=== PATIENT | male | born 1935 | race Caucasian/White ===

== ENCOUNTER 2017-08-01 05:21 | Emergency (ER) | payer MEDICARE ==
--- OUTSIDE RECORDS SUMMARY | 2017-08-01 05:24 | XMS | Clinical Summary ---
:1935 Author Organization [facility] Address [address] [place] [address] Phone Care Team Providers Name Role Phone , Primary Care Provider Unavailable Allergies Not on File Current Medications Prescription Sig. Disp. Refills Start Date End Date Status metoprolol (LOPRESSOR) 25 Take 25 mg by Active MG tablet mouth 2 (two) times daily. warfarin (COUMADIN) 7.5 MG Take 7.5 mg by Active tablet mouth daily. Active Problems Not on file Social History Tobacco Use Types Packs/Day Years Used Date Never Smoker Smokeless Tobacco: Never Used Alcohol Use Drinks/Week oz/Week Comments No Sex Assigned at Date Recorded Not on file Last Filed Vital Signs Vital Sign Reading Time Taken Blood Pressure 160/91 10/17/2013 2:01 PM HEAD NURSE Pulse 65 10/17/2013 2:01 PM HEAD NURSE Temperature 36.6 C (97.8 F) 10/17/2013 11:55 AM HEAD NURSE Respiratory Rate 20 10/17/2013 11:55 AM HEAD NURSE Oxygen Saturation 95% 10/17/2013 2:01 PM HEAD NURSE Inhaled Oxygen Concentration - - Weight 88.5 kg (195 lb) 10/17/2013 11:55 AM HEAD NURSE Height 182.9 cm (6') 10/17/2013 11:55 AM HEAD NURSE Body Mass Index 26.45 10/17/2013 11:55 AM HEAD NURSE Plan of Treatment Not on file Results Not on filefrom Last 3 Months
--- OUTSIDE RECORDS SUMMARY | 2017-08-01 05:24 | XMS | Clinical Summary ---
:1935 Author Organization [facility] Address [address] [place] [address] Phone Care Team Providers Name Role Phone , Primary Care Provider Unavailable Allergies Not on File Current Medications Not on file Active Problems Not on file Social History Tobacco Use Types Packs/Day Years Used Date Never Assessed Sex Assigned at Date Recorded Not on file Last Filed Vital Signs Not on file Plan of Treatment Not on file Results Not on filefrom Last 3 Months
[2017-08-01] MEDS ORDERED: methylPREDNISolone Sod Succ/PF 125 MG/2 ML VIAL ONE (05:46)
[2017-08-01] MEDS ORDERED: Water For Inject, Bacteriostat 30 ML ONE (05:46)
== END 2017-08-01 05:55 | disposition home or self-care (01) ==
LOC: ERS 05:21
DX: T63.441A Toxic effect of venom of bees, accidental (unintentional), initial encounter (principal); L53.0 Toxic erythema; I50.9 Heart failure, unspecified; I48.91 Unspecified atrial fibrillation
CPT/HCPCS: 96372; J2930

== ENCOUNTER 2019-01-05 08:20 | Outpatient (CLI) | payer MEDICARE ==
[2019-01-05] MEDS ORDERED: Iopamidol 300 61% 100 ML VIAL FS ONE (09:00)
--- NOTE | 2019-01-05 15:59 | CT ---
CT SOFT TISSUE NECK WITH CONTRAST: HISTORY: Left neck pain, under left jaw, for one week. FINDINGS: Contrast enhanced CT images of the soft tissue neck demonstrate the paranasal sinuses to be well aera aguilar. The orbits are grossly unremarkable. The right and left manager distribution spaces are unremarkable. No evidence of parotid lesions seen. Some mild calcification is seen in the right and left distal common carotid arteries. No definite evidence of pharyngeal mucosal abnormalities is seen. The right brachiocephalic artery and the right and left common carotid arteries are tortuous. No definite evidence of lymphadenopathy is seen. There is a single mildly enlarged left level III ly mph node, minimal diameter measuring 5 mm. No evidence of central necrosis seen. Extensive cervical lordosis and kyphosis are seen in the cervical and thoracic spine, respectively. IMPRESSION: No significant evidence of soft tissue neck abnormality seen. POS: [facility]
== END 2019-01-05 08:21 | disposition home or self-care (01) ==
LOC: SCSCT 08:20
PROVIDERS: ATTEND Family Medicine
DX: M54.2 Cervicalgia (principal)
CPT/HCPCS: 70491; 82565; Q9967

== ENCOUNTER 2019-04-22 13:18 | Emergency (ER) | payer MEDICARE | END 2019-04-22 14:29 | disposition home or self-care (01) | LOC: ERS 13:18 | DX: S81.812A Laceration without foreign body, left lower leg, initial encounter (principal); I50.9 Heart failure, unspecified; I48.91 Unspecified atrial fibrillation; W22.8XXA Striking against or struck by other objects, initial encounter | CPT/HCPCS: 99282 ==

== ENCOUNTER 2019-12-16 13:49 | Emergency (ER) | payer MEDICARE ==
[2019-12-16 14:58] LABS: #Eosinphils 0.1 thou/uL (0.0-0.7); #Lymphocytes 0.9 thou/uL (1.20-3.40); #Monocytes 0.9 thou/uL (0.11-0.59); #Neutrophils 8.6 thou/uL (1.40-6.50); %Basophils 0.3 % (0.0-1.0); %Eosinophils 0.8 % (0.0-10.0); %Lymphocytes 8.2 % (21.0-51.0); %Monocytes 8.5 % (0.0-10.0); %Neutrophils 82.3 % (42.0-75.0); Hemoglobin 13.8 g/dL (14.0-18.0); Mean Corpuscular HGB CONC 32.4 g/dL (32.0-36.0); Mean Corpuscular Hemoglobin 29.9 pg (27.0-31.0); Mean Corpuscular Volume 92.2 fL (78.0-98.0); Mean Platelet Volume 8.7 fL (7.4-10.4); Platelet Count 122 thou/uL (130-400); RBC Distribution Width 13.5 % (11.5-14.5); Red Blood Cell (RBC) Count 4.63 mill/uL (4.70-6.10); White Blood Cell (WBC) Count 10.4 thou/uL (4.8-10.8)
--- NOTE | 2019-12-16 14:59 | CT ---
ABDOMEN AND PELVIC CT SCAN WITHOUT IV CONTRAST: Date: 12/16/2019 HISTORY: Right flank pain. History of kidney stones. COMPARISON: 01/09/2015. FINDINGS: Lung bases appear clear. Stable right hemidiaphragm elevation. Evidence for cardiomegaly. Some pleura l calcification over the right hemidiaphragm region. The visualized liver, gallbladder, pancreas, and adrenal glands are unremarkable. Splenomegaly. Bilateral renal vascular calcifications. There is at least one right renal calculus. There is an obstructing 0.5 cm diameter calculus involving the upper ureter at approximately the L3 level with mild proximal right renal hydronephrosis. 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 There are some multilevel lumbar spine canal stenosis changes. No evidence for large or small bowel obstruction. Enlarged prostate gland. No mass, abscess, or abnormal fluid collection. No significant adenopathy. IMPRESSION: 1. Obstructing proximal right ureteral calculus. Nonobstructing right renal calculus. 2. Splenomegaly. 3. Other findings as above. POS: [facility]
[2019-12-16 15:27] LABS: ALT (SGPT) 24 U/L (8-55); AST (SGOT) 25 U/L (5-34); Albumin 3.9 g/dL (3.4-4.8); Alkaline Phosphatase 111 U/L (40-110); Anion Gap 11 mmol/L (10-20); BUN (Urea Nitrogen) 25 mg/dL (8.4-25.7); Bilirubin, Total 1.5 mg/dL (0.2-1.2); Calc. Creatinine Clearance 0 mL/min (70-130); Calcium 9.6 mg/dL (7.8-10.44); Carbon Dioxide 32 mmol/L (23-31); Chloride 104 mmol/L (98-107); Estimated GFR-MDRD 81; Globulin 2.5 g/dL (2.4-3.5); Glucose 92 mg/dL (83-110); Potassium 4.1 mmol/L (3.5-5.1); Protein, Total 6.4 g/dL (5.8-8.1); Sodium 143 mmol/L (136-145)
[2019-12-16 15:36] LABS: Bacteria/HPF 4+ HPF (None Seen); Bilirubin Negative (Negative); Blood, Urine 2+ (Negative); Clarity Turbid (Clear); Glucose, Urine (Dipstick) Normal (Negative); Leukocyte 500 Leu/uL (Negative); Nitrite 2+ (Negative); Protein, Urine (Dipstick) 50 mg/dL (Neg-Trace); RBC/HPF Greater than 50 HPF (0-3); Squamous Epithelial 0-3 HPF (0-3); Urobilinogen Normal mg/dL (Less than 2); WBC/HPF Greater than 50 HPF (0-3)
== END 2019-12-16 15:52 | disposition home or self-care (01) ==
LOC: ERS 13:49
DX: N13.2 Hydronephrosis with renal and ureteral calculous obstruction (principal); I50.9 Heart failure, unspecified; I48.91 Unspecified atrial fibrillation; Z79.01 Long term (current) use of anticoagulants
CPT/HCPCS: 36415; 74176; 80053; 81003; 81015; 85025

== ENCOUNTER 2020-01-02 13:43 | Outpatient (CLI) | payer MEDICARE ==
--- NOTE | 2020-01-02 14:22 | CT ---
CT OF THE ABDOMEN AND PELVIS WITHOUT IV CONTRAST INDICATION: Follow-up renal stone COMPARISON: CT the abdomen and pelvis without contrast dated December 16, 2019 FINDINGS: The lack of IV contrast limits evaluation of the solid organs of the abdomen and pelvis. ABDOMEN: Lung bases: Tiny bilateral pleural effusions with bibasilar atelectasis. There is moderate cardiomega ly. There are pleural-based calcifications involving the right hemidiaphragm which are nonspecific but stable to the prior exam. Liver: No focal lesion. Gallbladder: Normal appearing. Pancreas: Normal. Adrenal glands: Normal. Spleen: Stable calcified granuloma Kidneys and ureters: Stable bilateral nephrolithiasis. Persistent moderate right hydronephrosis. Ther e is been distal migration the previously seen 4 to 5 mm stone in the right ureter. This is now seen at the level of the right iliac bifurcation on image 58 of series 5. Vasculature: There are moderate vascular calcifications seen involving the visualized vasculature. Lymph nodes:No lymphadenopathy. Free fluid in abdomen:No free fluid is evident. PELVIS: Small and large bowel: Normal Appendix:Not definitely seen Bladder: Normal. Rectal and perirectal soft tissues:Normal. Reproductive structures: The prostate is enlarged measuring 5.9 cm Free fluid in pelvis: No free fluid is evident. Lymphadenopathy pelvis: No lymphadenopathy is evident. Osseous structures: There is scattered degenerative and osteoarthritic change present. No acute fracture or subluxation demonstrated. Soft tissues:There is mild muscular atrophy of the abductor musculature bilaterally. IMPRESSION: 1. Distal migration of the right ureteral calculus, now at the level of the pelvic inlet. There is pe rsistent moderate right hydronephrosis. Stable bilateral nephrolithiasis. 2. Tiny bilateral pleural effusions bibasilar atelectasis and moderate cardiomegaly. 3. Stable pleural-based calcifications of the right hemidiaphragm. 4. Stable prostate enlargement
== END 2020-01-02 13:44 | disposition home or self-care (01) ==
LOC: BICCT 13:43
PROVIDERS: ATTEND Urology
DX: N13.2 Hydronephrosis with renal and ureteral calculous obstruction (principal); J90 Pleural effusion, not elsewhere classified; J98.11 Atelectasis; I51.7 Cardiomegaly; J98.6 Disorders of diaphragm; N40.0 Benign prostatic hyperplasia without lower urinary tract symptoms
CPT/HCPCS: 74176

== ENCOUNTER 2020-09-12 13:31 | Outpatient (CLI) | payer MEDICARE ==
--- NOTE | 2020-09-12 16:01 | ULT ---
BILATERAL LOWER EXTREMITY VENOUS DUPLEX EXAM: 09/12/20 HISTORY: Bilateral leg pain and swelling. Real time color Doppler evaluation of the right and left lower extremities were performed from groin to calf. This includes evaluation of the common femoral, superficial and profunda femoral, saphenous, popliteal and posterior tibial veins. This shows patent deep venous systems bilaterally. There is no rmal compressibility and augmentation. There is no evidence of DVT. IMPRESSION: No evidence of DVT of either lower extremity. POS: [facility]
== END 2020-09-12 13:32 | disposition home or self-care (01) ==
LOC: BICULT 13:31
PROVIDERS: ATTEND Family Medicine
DX: I83.813 Varicose veins of bilateral lower extremities with pain (principal)
CPT/HCPCS: 93970

== ENCOUNTER 2024-01-05 08:31 | Outpatient (CLI) | payer MEDICARE | END 2024-01-05 08:32 | disposition home or self-care (01) | LOC: RAD 08:31 | PROVIDERS: ATTEND Internal Medicine Critical Care Medicine | DX: R06.00 Dyspnea, unspecified (principal); S22.000D Wedge compression fracture of unspecified thoracic vertebra, subsequent encounter for fracture with routine healing; M47.819 Spondylosis without myelopathy or radiculopathy, site unspecified; I51.7 Cardiomegaly; J98.6 Disorders of diaphragm; Z95.828 Presence of other vascular implants and grafts | CPT/HCPCS: 71046 ==

== ENCOUNTER 2024-07-16 10:02 | Inpatient (IN) | payer MEDICARE ==
[2024-07-16 10:40] LABS: #Basophils 0.04 10x3/uL (0.0-0.2); %Basophils 0.4 % (0.0-1.0); %Eosinophils 2.2 % (0.0-10.0); %Monocytes 6.5 % (0.0-10.0); %Neutrophils 74.6 % (42.0-75.0); Hematocrit 34.7 % (42.0-52.0); Hemoglobin 10.9 g/dL (14.0-18.0); Mean Corpuscular HGB CONC 31.4 g/dL (32.0-36.0); Mean Corpuscular Hemoglobin 30.5 pg (27.0-31.0); Mean Corpuscular Volume 97.2 fL (78.0-98.0); Platelet Count 160 10x3/uL (130-400); Red Blood Cell (RBC) Count 3.57 mill/uL (4.70-6.10)
[2024-07-16 10:46] LABS: ALT (SGPT) 19 U/L (8-55); AST (SGOT) 19 U/L (5-34); Albumin 3.5 g/dL (3.4-4.8); Alkaline Phosphatase 85 U/L (40-110); Anion Gap 12 mmol/L (10-20); BUN (Urea Nitrogen) 50 mg/dL (8.4-25.7); Calc. Creatinine Clearance 0 mL/min (70-130); Calcium 9.8 mg/dL (7.8-10.44); Carbon Dioxide 31 mmol/L (23-31); Chloride 106 mmol/L (98-107); Estimated GFR 86; Globulin 2.6 g/dL (2.4-3.5); Glucose 102 mg/dL (83-110); Potassium 4.5 mmol/L (3.5-5.1); Protein, Total 6.1 g/dL (5.8-8.1); Sodium 144 mmol/L (136-145)
[2024-07-16 11:29] LABS: INR-International Normal Ratio 1.2; Prothrombin Time 15.1 sec (12.0-14.7)
[2024-07-16 11:30] LABS: PTT 29.3 sec (22.9-36.1)
[2024-07-16] MEDS ORDERED: Pantoprazole 40 MG VIAL ONE (11:46)
[2024-07-16] MEDS ORDERED: Ondansetron PF 4 MG/2 ML Vial IVP PRN (12:19)
[2024-07-16] MEDS ORDERED: Senokot S 8.6-50 MG TAB PO PRN (12:19)
[2024-07-16] MEDS ORDERED: Acetaminophen 325 MG TAB PO PRN (12:19)
[2024-07-16] MEDS ORDERED: Pantoprazole 80 MG, Admixture Fee 1 EACH in Sodium Chloride 0.9% 100 ML IVPB SCH (12:30)
[2024-07-16] MEDS ORDERED: SUCCINYLCHOLINE/SOD CL,ISO/PF 200 MG/10 ML SYRINGE FS ONE (13:57)
[2024-07-16] MEDS ORDERED: Lidocaine 2% PF 5 ML VIAL ONE (13:57)
[2024-07-16] MEDS ORDERED: PROPOFOL 20 ML ONE (13:57)
[2024-07-16] MEDS ORDERED: PHENYLEPHRINE-NS 100 MCG/ML 10 ML SYRINGE ONE (14:00)
[2024-07-16] MEDS ORDERED: Dexamethasone 4 mg/ml Vial ONE (14:14)
[2024-07-16] MEDS ORDERED: Ondansetron PF 4 MG/2 ML Vial ONE (14:14)
[2024-07-16] MEDS ORDERED: Ondansetron HCl/PF 4 MG/2 ML Vial IVP PRN (14:21)
[2024-07-16] MEDS: Sodium Chloride 0.9% 1,000 ML IV SCH (15:57)
[2024-07-16 17:28] LABS: Hematocrit 29.3 % (42.0-52.0); Hemoglobin 9.4 g/dL (14.0-18.0)
[2024-07-16 17:39] VITALS: BMI 23.6
[2024-07-16] MEDS: Pantoprazole 80 MG, Admixture Fee 1 EACH in Sodium Chloride 0.9% 100 ML IVPB SCH (17:39)
[2024-07-17 06:00] LABS: ALT (SGPT) 14 U/L (8-55); AST (SGOT) 16 U/L (5-34); Albumin 3.1 g/dL (3.4-4.8); Alkaline Phosphatase 65 U/L (40-110); Anion Gap 11 mmol/L (10-20); BUN (Urea Nitrogen) 42 mg/dL (8.4-25.7); Bilirubin, Total 0.5 mg/dL (0.2-1.2); Calc. Creatinine Clearance 86 mL/min (70-130); Calcium 9.6 mg/dL (7.8-10.44); Carbon Dioxide 29 mmol/L (23-31); Chloride 108 mmol/L (98-107); Estimated GFR 89; Globulin 2.1 g/dL (2.4-3.5); Glucose 127 mg/dL (83-110); Potassium 4.4 mmol/L (3.5-5.1); Protein, Total 5.2 g/dL (5.8-8.1); Sodium 144 mmol/L (136-145)
[2024-07-17 06:24] LABS: Anisocytosis MODERATE=16-30 cells HPF (0-5); Macrocytosis SLIGHT = 6-15 cells HPF (0-5); Ovalocytes MODERATE= 6-15 cells HPF (0-1); Platelet Adequacy Comment Platelets Decreased; Polychromasia MARKED = >4 cells HPF (0-2)
[2024-07-17 06:31] LABS: #Basophils Less than 0.03 10x3/uL (0.0-0.2); #Eosinphils Less than 0.03 10x3/uL (0.0-0.7); %Lymphocytes 8.9 % (21.0-51.0); %Monocytes 4.5 % (0.0-10.0); %Neutrophils 86.3 % (42.0-75.0); Hematocrit 28.1 % (42.0-52.0); Hemoglobin 8.9 g/dL (14.0-18.0); Mean Corpuscular Hemoglobin 30.7 pg (27.0-31.0); Mean Corpuscular Volume 95.9 fL (78.0-98.0); Mean Platelet Volume 11.2 fL (7.4-10.4); Platelet Count 115 10x3/uL (130-400); RBC Distribution Width 14.1 % (11.5-14.5); Red Blood Cell (RBC) Count 2.93 mill/uL (4.70-6.10)
[2024-07-18] MEDS: Calcium Carbonate 500 MG ChewTAB PO PRN (05:41)
[2024-07-18 06:24] LABS: #Basophils Less than 0.03 10x3/uL (0.0-0.2); %Basophils 0.3 % (0.0-1.0); %Eosinophils 1.3 % (0.0-10.0); %Lymphocytes 14.7 % (21.0-51.0); %Monocytes 5.7 % (0.0-10.0); %Neutrophils 77.7 % (42.0-75.0); Hemoglobin 8.5 g/dL (14.0-18.0); Mean Corpuscular HGB CONC 31.5 g/dL (32.0-36.0); Mean Corpuscular Hemoglobin 30.4 pg (27.0-31.0); Mean Corpuscular Volume 96.4 fL (78.0-98.0); Mean Platelet Volume 10.9 fL (7.4-10.4); Platelet Count 112 10x3/uL (130-400); RBC Distribution Width 14.4 % (11.5-14.5)
[2024-07-18 06:46] LABS: Anisocytosis SLIGHT = 6-15 cells HPF (0-5); Platelet Adequacy Comment Platelets Decreased; Poikilocytosis SLIGHT = 6-15 cells HPF (0-5)
[2024-07-18 08:37] VITALS: BP 131/72; TEMP 95.1
== END 2024-07-18 13:54 | disposition home or self-care (01) | DRG 919 ==
LOC: SUATTDRO 10:02 → ERS 10:02 → T4-B 15:55
PROVIDERS: ADMIT Internal Medicine; ATTEND Internal Medicine
PROC: 0W3P8ZZ Control Bleeding in Gastrointestinal Tract, Via Natural or Artificial Opening Endoscopic (ICD-10-PCS; principal; 2024-07-16)
DX: K91.840 Postprocedural hemorrhage of a digestive system organ or structure following a digestive system procedure (principal); K25.4 Chronic or unspecified gastric ulcer with hemorrhage; D62 Acute posthemorrhagic anemia; I48.20 Chronic atrial fibrillation, unspecified; I10 Essential (primary) hypertension; R00.1 Bradycardia, unspecified; G47.30 Sleep apnea, unspecified; J45.909 Unspecified asthma, uncomplicated; Z79.899 Other long term (current) drug therapy; Z90.49 Acquired absence of other specified parts of digestive tract; Z89.022 Acquired absence of left finger(s)
CPT/HCPCS: 36415; 80053; 85025; 85610; 85730; 93005; 96374; C1889; J1100; J2001; J2405; J2470; J2704; J7030

== ENCOUNTER 2024-09-27 13:50 | Outpatient (CLI) | payer MEDICARE | END 2024-09-27 13:51 | disposition home or self-care (01) | LOC: RAD 13:50 | PROVIDERS: ATTEND Internal Medicine Critical Care Medicine | DX: R06.00 Dyspnea, unspecified (principal); J90 Pleural effusion, not elsewhere classified; J98.6 Disorders of diaphragm | CPT/HCPCS: 71046 ==